=== PATIENT | male | born 1955 ===

== ENCOUNTER 2019-02-06 07:49 | Outpatient (CLI) | payer MEDICARE, MEDICAID | END 2019-02-06 07:50 | disposition home or self-care (01) | LOC: C.PAT 07:49 | DX: Z01.818 Encounter for other preprocedural examination (principal); N20.1 Calculus of ureter ==

== ENCOUNTER 2019-02-10 09:26 | Day surgery (SDC) | payer MEDICARE, MEDICAID ==
[2019-02-06 08:05] VITALS: BMI 38.5
[2019-02-10] MEDS ORDERED: Ciprofloxacin 400mg/200ml D5W 400 MG/200 ML BAG IVPB ONE (12:47)
[2019-02-10] MEDS ORDERED: Lidocaine 2% Jelly (Uro-Jet) ONE (12:48)
[2019-02-10] MEDS ORDERED: Iohexol 240 (50 ml) ONE (12:48)
[2019-02-10] MEDS ORDERED: Propofol 10 mg/ml Inj (20 ML) ONE (12:53)
[2019-02-10] MEDS: Gentamicin 80 mg in 0.9% NS 160 MG/200 ML BAG IVPB ONE ×2 (13:09→13:10)
[2019-02-10] MEDS ORDERED: Lidocaine Hydrochloride 10 ML INJ ONE (13:25)
[2019-02-10] MEDS ORDERED: HYDROmorphone 0.5 mg/0.5 ml ISec IVP PRN (13:32)
--- NOTE | 2019-02-10 13:32 | PCM.SURG1 ---
Surgeon's Initial Post Op Note - Surgeon's Notes Surgeon: Andrea Director [employer]: MEENU Type of Anesthesia: General LMA Anesthesia Administered By: staff Pre-Operative Diagnosis: Right ureteral calculi Operative Findings: same Post-Operative Diagnosis: same Operation Performed: cysto/ureteroscopy/stone manipulation/stent insert. Specimen/Specimens Removed: na Estimated Blood Loss: EBL {In ML}: 0 Blood Products Given: N/A Drains Used: No Drains Post-Op Condition: Good Date of Surgery/Procedure: 02/10/19 Time of Surgery/Procedure: 13:32
[2019-02-10] MEDS ORDERED: Lactated Ringer's 1,000 ML IV SCH (13:45)
--- NOTE | 2019-02-10 15:03 | RAD ---
Date of service: 02/10/2019 PROCEDURE: Intraoperative Fluoroscopy. HISTORY: RT. URETER CALCULI FINDINGS: Fluoroscopic assistance was provided Fluoroscopy time = 46.5 sec. Radiation dose = 3.13 mGy. Please refer to the operative report from ARCELIA Etienne.
[2019-02-10 15:09] VITALS: BP 147/72; PULSE 75; RESP 18; TEMP 98; O2SAT 100
--- NOTE | 2019-02-11 09:30 | RAD ---
Date of service: 02/10/2019 HISTORY: RT. URETER CALCULI COMPARISON: 08/08/2017 TECHNIQUE: 1 view obtained. FINDINGS: BOWEL: There is less obscuring stool over the right colon today in this study with inferred respiratory motion and blur currently present. There are multiple hyperdensities perhaps 3 to 4 in number seen in the right upper quadrant projecting over the right kidney the largest of which is approximately 4 to 5 mm and borders the inferior right assumed 12th rib. This is difficult to see as such on the prior study due to the confounding stool. No interval ureteral or bladder calculi noted. Prior left-sided urolithiasis less conspicuous on this exam than before. BONES: Lumbosacral hardware in place-no change appreciated OTHER FINDINGS: Right L3-4 disc space narrowing. Bilateral hip mild osteoarthrosis. IMPRESSION: Interval appearance/appreciation of multiple inferred right renal calculi the largest is 4 to 5 mm estimated in the midpole bordering the inferior right 12th rib as above.
== END 2019-02-10 15:10 | disposition home or self-care (01) ==
LOC: C.SDS 09:26
PROVIDERS: ATTEND Urology
DX: N20.2 Calculus of kidney with calculus of ureter (principal); E11.9 Type 2 diabetes mellitus without complications; I10 Essential (primary) hypertension; E78.5 Hyperlipidemia, unspecified
CPT/HCPCS: 52352; 74018; 82948; C1725; C1769; J0744; J1580

== ENCOUNTER 2019-03-17 11:37 | Day surgery (SDC) | payer MEDICARE, MEDICAID ==
[2019-03-17 12:21] VITALS: BMI 38.4
[2019-03-17] MEDS ORDERED: Gentamicin 160 MG in Sodium Chloride 0.9% 100 ML IVPB ONE (12:30)
[2019-03-17] MEDS ORDERED: Ciprofloxacin 400mg/200ml D5W 400 MG/200 ML BAG IVPB ONE (14:54)
[2019-03-17] MEDS ORDERED: Midazolam 2 MG/2 ML VIAL ONE (15:00)
[2019-03-17] MEDS ORDERED: Propofol 10 mg/ml Inj (20 ML) ONE (15:00)
[2019-03-17] MEDS ORDERED: Lidocaine 2% Jelly (Uro-Jet) ONE (15:06)
--- NOTE | 2019-03-17 15:16 | PCM.SURG1 ---
Surgeon's Initial Post Op Note - Surgeon's Notes Surgeon: DANE [employer] Receivable Supervisor: MEENU Anesthesia Administered By: STAFF Pre-Operative Diagnosis: STENT Operative Findings: STENT Post-Operative Diagnosis: STENT Operation Performed: CYSTO/REMOVE STENT Specimen/Specimens Removed: NA Estimated Blood Loss: EBL {In ML}: 0 Blood Products Given: N/A Drains Used: No Drains Post-Op Condition: Good Date of Surgery/Procedure: 03/17/19 Time of Surgery/Procedure: 15:16
[2019-03-17 16:30] VITALS: TEMP 97.6
[2019-03-17 16:31] VITALS: O2SAT 96
[2019-03-17 16:56] VITALS: BP 126/69; PULSE 62; RESP 18
--- NOTE | 2019-03-17 23:21 | OP ---
PROCEDURE DATE: 03/17/2019 PREOPERATIVE DIAGNOSIS: Retained ureteral stent. POSTOPERATIVE DIAGNOSIS: Retained ureteral stent. PROCEDURE: Cystoscopy and removal of stent. FINDINGS: Double-J stent in good position with no evidence of calculi. DESCRIPTION OF PROCEDURE: As follows: Prior to the procedure, the patient was asked to sign a detailed informed consent. After full explanation of all risks, complications of the procedure were discussed with the patient. He agreed to accept the risks. He was brought into the room and he was draped and prepped in usual manner. After receiving prophylactic antibiotics, time-out was taken according to the rules and regulations of [facility] and the patient was cystoscoped with #21 Storz panendoscope. The pendulous and membranous urethra was normal. The prostatic urethra showed [id number] prostatic outlet obstruction. The bladder was entered atraumatically. The stent was seen protruding from the right ureteral orifice, which was grasped and removed. The patient tolerated this procedure well and he was sent to the recovery area in good condition. Baldo Mendez MD
--- NOTE | 2019-03-18 08:54 | RAD ---
Date of service: 03/17/2019 HISTORY: STENT REMOVAL COMPARISON: 02/10/2019 TECHNIQUE: 1 view obtained. FINDINGS: BOWEL: Normal. No obstruction. No free air. BONES: Lumbar spondylosis. Bilateral hip arthrosis OTHER FINDINGS: Prior right upper quadrant inferred right renal calculi are not as clearly depicted on the prior exam. There are some indeterminate hyperdensities here which are unclear if these are related stool contents or the prior less conspicuous right renal calculi. If needed, consider noncontrast CT abdomen and pelvis for clarification. Along the double-J right ureteral stent no appreciated urolithiasis seen. Lumbosacral level hardware similar. Bilateral hip arthrosis similar. IMPRESSION: Interval double-J right ureteral stent in place. Indeterminate findings regarding the persistence of prior right renal calculi. Confounding stool here. Clinical correlation noted. If needed, contrast CT abdomen/pelvis should be definitive. No urolithiasis along the right ureteral track over the bladder appreciated.
== END 2019-03-17 16:58 | disposition home or self-care (01) ==
LOC: C.SDS 11:37
PROVIDERS: ATTEND Urology
DX: Z46.6 Encounter for fitting and adjustment of urinary device (principal); N20.0 Calculus of kidney
CPT/HCPCS: 52310; 74018; 82948; 88300; J0744; J1580